=== PATIENT | male | born 2000 | race Caucasian/White ===

== ENCOUNTER 2022-01-25 23:20 | Emergency (ER) | payer OTHER ==
[~2022-01-25] VITALS: Ht 185.4 cm; Wt 72.6 kg
[2022-01-25 23:32] VITALS: BP 138/84
--- NOTE | 2022-01-25 23:36 | NUR ---
PT TAKEN TO LOBBY
--- NOTE | 2022-01-26 00:26 | NUR ---
C/O HEADACHE X TUESDAY, N/V, DIZZINESS WHEN MOVING. PT REPORTS NO RELIEF WITH IBUPROFEN TAKEN EARLIER TODAY. MOTHER AT THE SIDE. PMED HX: DENIES NKDA
--- NOTE | 2022-01-26 00:30 | NUR ---
PT TAKEN TO BED 7
--- NOTE | 2022-01-26 01:03 | NUR ---
21 Y/O BIB MOTHER FOR C/O HEADACHE SINCE TUESDAY. PT COMPLAIS HEADACHE STARTS FROM TEMPORAL REGION. THEN FEELS PRESSURE IN THE SINUS AREA. PT HAS HAD 1 EPISODE OF VOMITING. PT REPORTS F/ N/V/DIZZINESS. PT TOOK AN IBUPROFEN TWICE FOR PAIN. BUT NO RELIEF. PT IS A&0X4, AMBULATORY ,STEADY. NO FEVER AT THIS TIME. ALL VSS PMH: N/A ALLERGIES: N/A
[2022-01-26] MEDS ORDERED: diphenhydrAMINE 50 MG/ML VIAL IM ONE (01:10)
[2022-01-26] MEDS ORDERED: KETOROLAC 30 MG/ML VIAL IM ONE (01:10)
[2022-01-26] MEDS ORDERED: PROCHLORPERAZINE 10 MG/2 ML VIAL IM ONE (01:10)
[2022-01-26] MEDS: NACL 0.9% 1,000 ML IV ONE (02:15)
--- NOTE | 2022-01-26 02:15 | NUR ---
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
--- NOTE | 2022-01-26 02:18 | NUR ---
RAPID FLU AND COVID OBTAINED. SPECIMENS GIVEN TO ZEV THAOCOLLAR TACKER
--- NOTE | 2022-01-26 02:20 | NUR ---
PT TAKEN TO CT VIA W/C
[2022-01-26 02:24] LABS: BASOPHILS % (AUTO) 0.7 % (0.0-2.0); EOSINOPHILS % (AUTO) 0.2 % (0.0-4.0); HEMATOCRIT 45.1 % (36-52); HEMOGLOBIN 15.2 g/dL (12.0-18.0); LYMPHOCYTES # (AUTO) 1.1 K/uL (2.0-11.5); LYMPHOCYTES % (AUTO) 22.8 % (20.5-51.1); MEAN CORPUSCULAR HEMOGLOBIN 30 pg (27-31); MEAN CORPUSCULAR HGB CONC 34 g/dL (33-37); MEAN CORPUSCULAR VOLUME 88.2 fL (80-94); MONOCYTES # (AUTO) 0.7 K/uL (0.8-1.0); MONOCYTES % (AUTO) 15.1 % (1.7-9.3); NEUTROPHILS # (AUTO) 2.9 K/uL (1.8-7.7); NEUTROPHILS % (AUTO) 61.2 % (42.2-75.2); PLATELET COUNT (AUTO) 142 K/uL (140-450); RED BLOOD CELL COUNT(AUTO) 5.12 MIL/uL (4.20-6.10); RED CELL DISTRIBUTION WIDTH 13.4 % (11.6-13.7); WHITE BLOOD COUNT (AUTO) 4.7 K/uL (4.5-11.0)
[2022-01-26 02:43] LABS: ALBUMIN 4.3 g/dL (3.4-5.0); ANION GAP 14.1 (8-16); POTASSIUM 5.1 mmol/L (3.5-5.1); TOTAL BILIRUBIN 0.3 mg/dL (0.0-1.0)
--- NOTE | 2022-01-26 03:00 | NUR ---
Patient appears to be resting comfortably in bed. Vital Signs within normal limits. Respirations even and unlabored. MOTHER AT BEDSIDE
[2022-01-26] MEDS ORDERED: TAM75 PO ×2 (03:15→03:27)
[2022-01-26] MEDS: KETOROLAC 15 MG/ML VIAL IVP ONE (03:31)
[2022-01-26] MEDS: OSELTAMIVIR PHOSPHATE 75 MG CAP PO ONE (03:32)
[2022-01-26 04:00] VITALS: BP 120/71
--- NOTE | 2022-01-26 04:00 | NUR ---
Patient discharged with v/s stable. Written and verbal after care instructions given and explained. Patient verbalized understanding. Ambulatory with steady gait. All questions addressed prior to discharge. Advised to follow up with PMD.
== END 2022-01-26 04:00 | disposition home or self-care (01) ==
LOC: MED 23:20
DX: J10.1 Influenza due to other identified influenza virus with other respiratory manifestations (principal); Z20.822 Contact with and (suspected) exposure to COVID-19
CPT/HCPCS: 36415; 70450; 80053; 81002; 83605; 85025; 86703; 87040; 87426; 87804; 96361; 96374; 99284; J0780; J1200; J1885; J7030; 99283